=== PATIENT | female | born 1930 | race Caucasian/White ===

== ENCOUNTER 2016-09-17 03:57 | Emergency (ER) | payer MEDICARE, BC ==
[~2016-09-17] VITALS: Ht 165.1 cm; Wt 65.0 kg
[~2016-09-17 03:57] MED LIST: ASPI81 PO; CARV6.25 PO; DIGO.125 PO; ENAL20TA81 PO; LASI20TA PO; LEVO100T4 PO; POTA-267 PO
[2016-09-17 04:01] VITALS: BP 178/74; PULSE 91; RESP 16; TEMP 99.4; O2SAT 98
[2016-09-17] MEDS ORDERED: RESP: ALBUTEROL 2.5 MG/IPRATROPIUM 0.5 MG NEB (SCH) INH ONE (04:15)
[2016-09-17] MEDS ORDERED: SODIUM CHLORIDE 0.9% FLUSH 10 ML FLUSH IVF PRN (04:15)
[2016-09-17] MEDS ORDERED: MECLIZINE HCL 25 MG TAB PO ONE (04:15)
[2016-09-17 04:19] VITALS: PULSE 86; RESP 18; O2SAT 98
[2016-09-17] MEDS ORDERED: CARV6.252 PO (04:28)
[2016-09-17] MEDS ORDERED: FURO1TAB62 PO (04:28)
[2016-09-17] MEDS ORDERED: POTA10CA PO (04:28)
[2016-09-17] MEDS ORDERED: ASPI81TA81 (04:28)
[2016-09-17] MEDS ORDERED: LEVO100T5 PO (04:28)
[2016-09-17] MEDS ORDERED: ENAL20TA PO (04:28)
[2016-09-17 04:44] LABS: AUTOMATED NEUTROPHIL # 10.1 TH/MM3 (1.8-7.7); BASOPHIL % 0.3 % (0.0-2.0); EOSINOPHIL # 0.3 TH/MM3 (0-0.4); EOSINOPHIL % 1.9 % (0.0-4.0); HEMATOCRIT 32.8 % (35.0-46.0); HEMO FLAGS DIFF FINAL; LYMPH % 9.9 % (9.0-44.0); LYMPHOCYTE # 1.3 TH/MM3 (1.0-4.8); MEAN CELL VOLUME 99.4 FL (80.0-100.0); MEAN CORPUSCULAR HEMOGLOBIN 32.1 PG (27.0-34.0); MEAN CORPUSCULAR HGB CONC 32.3 % (32.0-36.0); MONO % 13.9 % (0.0-8.0); PLATELET COUNT 246 TH/MM3 (150-450); RED BLOOD COUNT 3.29 MIL/MM3 (4.00-5.30); RED CELL DISTRIBUTION WIDTH 14.1 % (11.6-17.2); WHITE BLOOD COUNT 13.6 TH/MM3 (4.0-11.0)
[2016-09-17 04:55] LABS: ALT (GPT) 68 U/L (10-53); ANION GAP 9 MEQ/L (5-15); AST (GOT) 43 U/L (15-37); BLOOD UREA NITROGEN 15 MG/DL (7-18); CHLORIDE 107 MEQ/L (98-107); GLOMERULAR FILTRATION RATE 46 ML/MIN (>89); POTASSIUM 3.9 MEQ/L (3.5-5.1); SODIUM (NA) 141 MEQ/L (136-145)
[2016-09-17 04:58] LABS: ALKALINE PHOSPHATASE 75 U/L (45-117); TOTAL BILIRUBIN ADULT 1.5 MG/DL (0.2-1.0)
--- NOTE | 2016-09-17 05:41 | RADRPT ---
EXAM DATE/TIME: 09/17/2016 04:29 [facility] COMPARISON: No previous studies available for comparison. INDICATIONS : Patient has been coughing since Tuesday and has been experiencing vertigo MEDICAL HISTORY : None. SURGICAL HISTORY : Pacemaker. Two pacemaker placements, most recent was 2 years ago. ENCOUNTER: Initial ACUITY: 4 - 6 days PAIN SCORE: 0/10 LOCATION: Bilateral chest FINDINGS: Cardiomegaly. Hyperinflation. Clear lungs. Pacer/ICD device from a left subclavian transvenous arch n oted. Osseous structures are intact. CONCLUSION: No acute disease. Law Collins MD on September 17, 2016 at 5:39 Board Certified Radiologist. This report was verified electronically.
[2016-09-17] MEDS ORDERED: PROM6.256 PO (05:53)
[2016-09-17] MEDS ORDERED: ALBUAER3 INH (05:53)
--- NOTE | 2016-09-17 05:53 | PD ---
HPI Chief Complaint: Chest Pain Time Seen by Provider: 04:08 Travel History International Travel<30 days: No Contact w/Intl Traveler<30days: No Traveled to known affect area: No History of Present Illness HPI This is an 86-year-old female who presents to the emergency department with 1 week of wet cough, constant, moderate severity, worse at nighttime, associated with dizziness. She says she's had vertigo in the past and over the past week or dizziness has gotten worse with her cough. She denies any fevers or chills. She has a history congestive heart failure but hasn't noticed any increased leg swelling. She told her doctor about her symptoms and they prescribed her azithromycin which she's been taking but she doesn't feel any better. PFSH Past Medical History Heart Rhythm Problems: Yes Cardiac Catheterization: Yes (X 35 YEARS AGO) Cardiovascular Problems: Yes (LBB, CHF ) High Cholesterol: No Chest Pain: Yes Congestive Heart Failure: Yes (edUcation given) COPD: Yes Diabetes: No Diminished Hearing: No Genitourinary: No Hypertension: Yes Musculoskeletal: No Neurologic: No Respiratory: No Thyroid Disease: Yes Past Surgical History Abdominal Surgery: Yes (APPENDECTOMY) Appendectomy: Yes Cardiac Surgery: Yes (PACEMAKER INSERTED 02/08/08) Coronary Artery Bypass Graft: No Gynecologic Surgery: Yes (OVARARIAN CYST REMOVED) Pacemaker: Yes Other Surgery: Yes Social History Alcohol Use: No Tobacco Use: No Substance Use: No Allergies-Medications (Allergen,Severity, Reaction): Coded Allergies: Nitroglycerin (Verified Allergy, Severe, 09/17/16) Prednisone (Verified Allergy, Severe, 09/17/16) Reported Meds & Prescriptions Reported Meds & Active Scripts Active Promethazine-Codeine Liq 6.25-10 Mg/5 Ml Syrp 5 Ml PO Q4H PRN Proair Hfa 8.5 GM Inh (Albuterol Sulfate) 90 Mcg/Act Aer 2 Puff INH Q4-6H PRN 108 mcg/actuation Reported Potassium Chloride ER (Potassium Chloride) 10 Meq Cap 10 Meq PO Levothyroxine (Levothyroxine Sodium) 100 Mcg Tab 100 Mcg PO DAILY Lasix (Furosemide) 20 Mg Tab 20 Mg PO Enalapril (Enalapril Maleate) 20 Mg Tab 20 Mg PO DAILY Carvedilol 6.25 Mg Tab 6.25 Mg PO BID Aspir-81 (Aspirin) 81 Mg Tabdr Levothyroxine 100 mcg (Levothyroxine Sodium) 100 Mcg Tab 1 Tab PO DAILY Aspirin 81 Mg Tab 81 Mg PO DAILY Lanoxin (Digoxin) 0.125 Mg Tab 0.5 Tab PO DAILY 1/2 TAB Klor-Con 10 (Potassium Chloride) 10 Meq Tab 20 Meq PO MONWEDFRI 3x WEEK Lasix (Furosemide) 20 Mg Tab 20 Mg PO MONWEDFRI 3x WEEK Vasotec (Enalapril Maleate) 20 Mg Tab 30 Mg PO DAILY Coreg 6.25 mg (Carvedilol) 6.25 Mg Tab 12.5 Mg PO BID Review of Systems Except as stated in HPI: all other systems reviewed are Neg Physical Exam Narrative GENERAL:Well appearing, no acute distress SKIN: Focused skin assessment warm and dry. HEAD: Atraumatic. Normocephalic. EYES: Pupils equal and round. No injection or drainage. ENT: Moist mucous membranes NECK: Trachea midline. CARDIOVASCULAR: Regular rate and rhythm. No murmur appreciated. 1+ bilateral pitting edema. RESPIRATORY: Clear to auscultation. Breath sounds equal bilaterally. GASTROINTESTINAL: Abdomen soft, non-tender, nondistended. MUSCULOSKELETAL: No obvious deformities. NEUROLOGICAL: Awake and alert. No obvious cranial nerve deficits. Moving all extremities. PSYCHIATRIC: Appropriate mood and affect; insight and judgment normal. Data Data Last Documented VS Vital Signs Date Time Temp Pulse Resp B/P Pulse Ox O2 Delivery O2 Flow Rate FiO2 09/17/16 04:19 18 98 09/17/16 04:19 86 09/17/16 04:01 99.4 178/74 Room Air Orders Complete Blood Count With Diff (09/17/16 04:14) Comprehensive Metabolic Panel (09/17/16 04:14) B-Type Natriuretic Peptide (09/17/16 04:14) Iv Access Insert/Monitor (09/17/16 04:14) Ecg Monitoring (09/17/16 04:14) Oximetry (09/17/16 04:14) Oxygen Administration (09/17/16 04:14) Chest, Single Ap (09/17/16 04:14) Sodium Chloride 0.9% Flush (Ns Flush) (09/17/16 04:15) Albuterol-Ipratropium Neb (Duoneb Neb) (09/17/16 04:15) Meclizine (Antivert) (09/17/16 04:15) Labs Laboratory Tests Test 09/17/16 04:25 White Blood Count 13.6 TH/MM3 Red Blood Count 3.29 MIL/MM3 Hemoglobin 10.6 GM/DL Hematocrit 32.8 % Mean Corpuscular Volume 99.4 FL Mean Corpuscular Hemoglobin 32.1 PG Mean Corpuscular Hemoglobin 32.3 % Concent Red Cell Distribution Width 14.1 % Platelet Count 246 TH/MM3 Mean Platelet Volume 8.2 FL Neutrophils (%) (Auto) 74.0 % Lymphocytes (%) (Auto) 9.9 % Monocytes (%) (Auto) 13.9 % Eosinophils (%) (Auto) 1.9 % Basophils (%) (Auto) 0.3 % Neutrophils # (Auto) 10.1 TH/MM3 Lymphocytes # (Auto) 1.3 TH/MM3 Monocytes # (Auto) 1.9 TH/MM3 Eosinophils # (Auto) 0.3 TH/MM3 Basophils # (Auto) 0.0 TH/MM3 CBC Comment DIFF FINAL Differential Comment Sodium Level 141 MEQ/L Potassium Level 3.9 MEQ/L Chloride Level 107 MEQ/L Carbon Dioxide Level 25.0 MEQ/L Anion Gap 9 MEQ/L Blood Urea Nitrogen 15 MG/DL Creatinine 1.13 MG/DL Estimat Glomerular Filtration 46 ML/MIN Rate Random Glucose 107 MG/DL Calcium Level 9.1 MG/DL Total Bilirubin 1.5 MG/DL Aspartate Amino Transf 43 U/L (AST/SGOT) Alanine Aminotransferase 68 U/L (ALT/SGPT) Alkaline Phosphatase 75 U/L B-Type Natriuretic Peptide 343 PG/ML Total Protein 7.0 GM/DL Albumin 3.2 GM/DL [facility] Medical Decision Making Medical Screen Exam Complete: Yes Emergency Medical Condition: Yes Differential Diagnosis Bronchitis, pneumonia, congestive heart failure Narrative Course This is an 86-year-old female who presents to the emergency department with a cough. She has a leukocytosis and a low-grade temperature of 99.4 on arrival. Chest x-rays reassuring and labs are otherwise unremarkable. I suspect the patient has bronchitis. I will augment her antibiotic coverage to Levaquin. She was given a bronchodilator treatment in the emergency department which significantly improved her symptoms. She will also be discharged with cough syrup and meclizine for vertigo. Diagnosis Primary Impression: Bronchitis Patient Instructions: General Instructions Additional Instructions: If you develop severe chest pain, shortness of breath, sweating, lightheadedness , dizziness or difficulty breathing return to the emergency department immediately. Followup with your primary care physician in 2-3 days if your symptoms are not resolved. Stop your azithromycin and take Levaquin. Med/Other Pt SpecificInfo: Prescription(s) given Scripts Meclizine 25 Mg Tab25 Mg PO DIRECTED PRN (VERTIGO) #10 TAB Ref 0 Prov:Gerri Guerrier MD 09/17/16 Levofloxacin (Levaquin)500 Mg Tablet1 Tab PO DAILY 7 Days Prov:Gerri Guerrier MD 09/17/16 Promethazine-Codeine Liq 6.25-10 Mg/5 Ml Syrp5 Ml PO Q4H PRN (COUGH AND/OR COLD SYMPTOMS) #100 ML Prov:Gerri Guerrier MD 09/17/16 Albuterol 8.5 GM Inh (Proair Hfa 8.5 GM Inh)90 Mcg/Act Aer2 Puff INH Q4-6H PRN ( SHORTNESS OF BREATH) #1 INHALER 108 mcg/actuation Prov:Gerri Guerrier MD 09/17/16 Disposition: 01 DISCHARGE HOME Condition: Stable Gerri Guerrier MD Sep 17, 2016 05:53
[2016-09-17] MEDS ORDERED: MECL-62 PO (05:55)
[2016-09-17] MEDS ORDERED: LEVA500T20 PO (05:55)
== END 2016-09-17 06:23 | disposition home or self-care (01) ==
LOC: NEPC 03:57
DX: J40 Bronchitis, not specified as acute or chronic (principal); I50.9 Heart failure, unspecified
CPT/HCPCS: 71010; 80053; 83880; 85025; 94664

== ENCOUNTER 2017-03-18 10:28 | Emergency (ER) | payer MEDICARE, BC ==
[~2017-03-18] VITALS: Ht 162.6 cm; Wt 67.0 kg
[~2017-03-18 10:28] MED LIST changes: +ALBUAER3 INH; +ASPI81TA81; +CARV6.252 PO; +ENAL20TA PO; +FURO1TAB62 PO; +LEVA500T33 PO; +LEVO100T5 PO; +MECL-62 PO; +POTA10CA PO; +PROM6.256 PO
[2017-03-18 10:31] VITALS: BP 164/64; PULSE 71; RESP 16; TEMP 97.7; O2SAT 99
[2017-03-18] MEDS ORDERED: SODIUM CHLOR 0.9% 1000 ML INJ 1,000 ML IV SCH (10:51)
[2017-03-18 10:53] VITALS: PULSE 77; RESP 17; O2SAT 98
[2017-03-18] MEDS ORDERED: PHENAZOPYRIDINE HCL 200 MG TAB PO ONE (11:00)
[2017-03-18] MEDS ORDERED: SODIUM CHLORIDE 0.9% FLUSH 10 ML FLUSH IV FLUSH PRN (11:00)
--- NOTE | 2017-03-18 11:00 | PD ---
HPI Chief Complaint: Complaint Time Seen by Provider: 10:43 Travel History International Travel<30 days: No Contact w/Intl Traveler<30days: No Traveled to known affect area: No History of Present Illness HPI The patient is a 86-year-old female who presents to the emergency department for possible recurrent urinary tract infection. The patient states she has a history of recurrent urinary tract infections, was seen by urology and an outpatient basis and advised to take cranberry pills twice a day. The patient states she was doing well for several months, however, developed UTI symptoms on March 10. The patient states she was seen at [place] urgent [facility] and was diagnosed with UTI. The patient was started on Cipro. She took several days of Cipro, however, continue to have symptoms and contacted her physician, Dr. Gregory Carvalho, who changed antibiotics from Cipro to Bactrim and ordered a urine culture. The patient does not have the results of the urine culture. She continues to have suprapubic pressure, dysuria, frequency, and urgency. Her pain is located over the lower pelvic area. She denies any diarrhea. She denies any known history of diverticulitis or nephrolithiasis. Symptoms are moderate without any alleviating or exacerbating factors. She denies any known history of bladder prolapse. PFSH Past Medical History Heart Rhythm Problems: Yes Cardiac Catheterization: Yes (X 35 YEARS AGO) Cardiovascular Problems: Yes (LBB, CHF ) High Cholesterol: No Chest Pain: Yes Congestive Heart Failure: Yes COPD: Yes Diabetes: No Diminished Hearing: No Genitourinary: No Hypertension: Yes Musculoskeletal: No Neurologic: No Respiratory: No Immunizations Current: Yes Thyroid Disease: Yes Tetanus Vaccination: Unknown ?: Not Past Surgical History Abdominal Surgery: Yes (APPENDECTOMY) Appendectomy: Yes Cardiac Surgery: Yes (PACEMAKER INSERTED 2013 ([employer]) ) Coronary Artery Bypass Graft: No Gynecologic Surgery: Yes (OVARARIAN CYST REMOVED) Pacemaker: Yes Other Surgery: Yes Social History Alcohol Use: No Tobacco Use: No Substance Use: No Allergies-Medications (Allergen,Severity, Reaction): Coded Allergies: nitroglycerin (Unverified Allergy, Severe, 03/18/17) prednisone (Unverified Allergy, Severe, 03/18/17) Reported Meds & Prescriptions Reported Meds & Active Scripts Active Meclizine (Meclizine HCl) 25 Mg Tab 25 Mg PO DIRECTED PRN Levaquin (Levofloxacin) 500 Mg Tablet 1 Tab PO DAILY 7 Days Promethazine-Codeine Liq 6.25-10 Mg/5 Ml Syrp 5 Ml PO Q4H PRN Proair Hfa 8.5 GM Inh (Albuterol Sulfate) 90 Mcg/Act Aer 2 Puff INH Q4-6H PRN 108 mcg/actuation Reported Potassium Chloride ER (Potassium Chloride) 10 Meq Cap 10 Meq PO Levothyroxine (Levothyroxine Sodium) 100 Mcg Tab 100 Mcg PO DAILY Lasix (Furosemide) 20 Mg Tab 20 Mg PO Enalapril (Enalapril Maleate) 20 Mg Tab 20 Mg PO DAILY Carvedilol 6.25 Mg Tab 6.25 Mg PO BID Aspir-81 (Aspirin) 81 Mg Tabdr Levothyroxine 100 mcg (Levothyroxine Sodium) 100 Mcg Tab 1 Tab PO DAILY Aspirin 81 Mg Tab 81 Mg PO DAILY Lanoxin (Digoxin) 0.125 Mg Tab 0.5 Tab PO DAILY 1/2 TAB Klor-Con 10 (Potassium Chloride) 10 Meq Tab 20 Meq PO MONWEDFRI 3x WEEK Lasix (Furosemide) 20 Mg Tab 20 Mg PO MONWEDFRI 3x WEEK Vasotec (Enalapril Maleate) 20 Mg Tab 30 Mg PO DAILY Coreg 6.25 mg (Carvedilol) 6.25 Mg Tab 12.5 Mg PO BID Review of Systems Except as stated in HPI: all other systems reviewed are Neg General / Constitutional: No: Fever Cardiovascular: No: Chest Pain or Discomfort Respiratory: No: Shortness of Breath Gastrointestinal: No: Nausea, Vomiting, Abdominal Pain Genitourinary: Positive: Urgency, Frequency, Dysuria, Pelvic Pain, No: Hematuria Skin: No Rash Physical Exam Narrative GENERAL: Awake, alert, pleasant 86 year-old female who appears her stated age and is in no acute respiratory distress. SKIN: Focused skin assessment warm/dry. HEAD: Atraumatic. Normocephalic. EYES: No injection or drainage. ENT: No nasal bleeding or discharge. Mucous membranes pink and moist. NECK: Trachea midline. No JVD. CARDIOVASCULAR: Regular rate and rhythm. No murmur appreciated. RESPIRATORY: No accessory muscle use. Clear to auscultation. Breath sounds equal bilaterally. GASTROINTESTINAL: Abdomen soft, mild suprapubic tenderness. No guarding or rigidity. Well-healed lower abdominal scar. Back: No CVA tenderness. MUSCULOSKELETAL: No obvious deformities. No clubbing. No cyanosis. No edema. NEUROLOGICAL: Awake and alert. No obvious cranial nerve deficits. Motor grossly within normal limits. Normal speech. PSYCHIATRIC: Appropriate mood and affect; insight and judgment normal. Data Data Last Documented VS Vital Signs Date Time Temp Pulse Resp B/P (MAP) Pulse Ox O2 Delivery O2 Flow Rate FiO2 03/18/17 11:10 73 17 170/74 (106) 96 Room Air 03/18/17 10:31 97.7 Orders Orders Complete Blood Count With Diff (03/18/17 10:51) Comprehensive Metabolic Panel (03/18/17 10:51) Urinalysis - C+S If Indicated (03/18/17 10:51) Ct Abd/Pel W/O Iv Contrast (03/18/17 10:51) Iv Access Insert/Monitor (03/18/17 10:51) Ecg Monitoring (03/18/17 10:51) Oximetry (03/18/17 10:51) Sodium Chlor 0.9% 1000 Ml Inj (Ns 1000 M (03/18/17 10:51) Sodium Chloride 0.9% Flush (Ns Flush) (03/18/17 11:00) Phenazopyridine (Pyridium) (03/18/17 11:00) Labs Laboratory Tests Test 03/18/17 10:50 03/18/17 10:58 Urine Color LIGHT-YELLOW Urine Turbidity CLEAR Urine pH 6.5 Urine Specific [place] 1.005 Urine Protein NEG mg/dL Urine Glucose (UA) NEG mg/dL Urine Ketones NEG mg/dL Urine Occult Blood NEG Urine Nitrite NEG Urine Bilirubin NEG Urine Urobilinogen LESS THAN 2.0 MG/DL Urine Leukocyte Esterase NEG Urine WBC 1 /hpf Urine Squamous Epithelial Cells 1 /hpf Urine Transitional Epithelial Cells <1 /hpf Microscopic Urinalysis Comment CULT NOT INDICATED White Blood Count 9.7 TH/MM3 Red Blood Count 3.83 MIL/MM3 Hemoglobin 13.0 GM/DL Hematocrit 37.9 % Mean Corpuscular Volume 99.0 FL Mean Corpuscular Hemoglobin 34.0 PG Mean Corpuscular Hemoglobin Concent 34.4 % Red Cell Distribution Width 13.9 % Platelet Count 260 TH/MM3 Mean Platelet Volume 8.3 FL Neutrophils (%) (Auto) 71.7 % Lymphocytes (%) (Auto) 16.6 % Monocytes (%) (Auto) 9.1 % Eosinophils (%) (Auto) 1.8 % Basophils (%) (Auto) 0.8 % Neutrophils # (Auto) 6.9 TH/MM3 Lymphocytes # (Auto) 1.6 TH/MM3 Monocytes # (Auto) 0.9 TH/MM3 Eosinophils # (Auto) 0.2 TH/MM3 Basophils # (Auto) 0.1 TH/MM3 CBC Comment DIFF FINAL Differential Comment Blood Urea Nitrogen 15 MG/DL Creatinine 1.37 MG/DL Random Glucose 93 MG/DL Total Protein 7.5 GM/DL Albumin 4.1 GM/DL Calcium Level 9.2 MG/DL Alkaline Phosphatase 72 U/L Aspartate Amino Transf (AST/SGOT) 43 U/L Alanine Aminotransferase (ALT/SGPT) 53 U/L Total Bilirubin 1.3 MG/DL Sodium Level 136 MEQ/L Potassium Level 4.4 MEQ/L Chloride Level 103 MEQ/L Carbon Dioxide Level 25.6 MEQ/L Anion Gap 7 MEQ/L Estimat Glomerular Filtration Rate 36 ML/MIN MDM Medical Decision Making Medical Screen Exam Complete: Yes Emergency Medical Condition: Yes Medical Record Reviewed: Yes Interpretation(s) Last Impressions Abdomen/Pelvis CT 03/18/17 1051 Signed Impressions: Service Date/Time: Saturday, March 18, 2017 11:06 - CONCLUSION: 1. Nonobstructing 3 mm calculus lower pole left kidney. 2. Multiple calcified gallstones without biliary ductal dilatation. 3. Colonic diverticulosis without diverticulitis. Kailash Patel MD Laboratory Tests Test 03/18/17 10:50 03/18/17 10:58 Urine Color LIGHT-YELLOW Urine Turbidity CLEAR Urine pH 6.5 Urine Specific [place] 1.005 Urine Protein NEG mg/dL Urine Glucose (UA) NEG mg/dL Urine Ketones NEG mg/dL Urine Occult Blood NEG Urine Nitrite NEG Urine Bilirubin NEG Urine Urobilinogen LESS THAN 2.0 MG/DL Urine Leukocyte Esterase NEG Urine WBC 1 /hpf Urine Squamous Epithelial Cells 1 /hpf Urine Transitional Epithelial Cells <1 /hpf Microscopic Urinalysis Comment CULT NOT INDICATED White Blood Count 9.7 TH/MM3 Red Blood Count 3.83 MIL/MM3 Hemoglobin 13.0 GM/DL Hematocrit 37.9 % Mean Corpuscular Volume 99.0 FL Mean Corpuscular Hemoglobin 34.0 PG Mean Corpuscular Hemoglobin Concent 34.4 % Red Cell Distribution Width 13.9 % Platelet Count 260 TH/MM3 Mean Platelet Volume 8.3 FL Neutrophils (%) (Auto) 71.7 % Lymphocytes (%) (Auto) 16.6 % Monocytes (%) (Auto) 9.1 % Eosinophils (%) (Auto) 1.8 % Basophils (%) (Auto) 0.8 % Neutrophils # (Auto) 6.9 TH/MM3 Lymphocytes # (Auto) 1.6 TH/MM3 Monocytes # (Auto) 0.9 TH/MM3 Eosinophils # (Auto) 0.2 TH/MM3 Basophils # (Auto) 0.1 TH/MM3 CBC Comment DIFF FINAL Differential Comment Blood Urea Nitrogen 15 MG/DL Creatinine 1.37 MG/DL Random Glucose 93 MG/DL Total Protein 7.5 GM/DL Albumin 4.1 GM/DL Calcium Level 9.2 MG/DL Alkaline Phosphatase 72 U/L Aspartate Amino Transf (AST/SGOT) 43 U/L Alanine Aminotransferase (ALT/SGPT) 53 U/L Total Bilirubin 1.3 MG/DL Sodium Level 136 MEQ/L Potassium Level 4.4 MEQ/L Chloride Level 103 MEQ/L Carbon Dioxide Level 25.6 MEQ/L Anion Gap 7 MEQ/L Estimat Glomerular Filtration Rate 36 ML/MIN Differential Diagnosis Differential diagnosis includes UTI, hemorrhagic cystitis, interstitial cystitis , nephrolithiasis, diverticulitis, bladder prolapse. Narrative Course IV was established, labs are drawn and sent, and the patient was placed on cardiac telemetry monitoring and continuous pulse oximetry monitoring. UA was sent to lab. The patient was a embedded firmware developer Pyridium [address] was ordered to evaluate for possible diverticulitis versus nephrolithiasis with recurrent symptoms and the patient being on 2 antibiotics. UA is negative. I'll surprise in the urine is negative as patient is on her second antibiotic. Creatinine is mildly elevated at 1.37. CT reveals no evidence of diverticulitis or current passage of a kidney stone. The patient may have cystitis, she will need to await culture results from her primary physician. I will place the patient on Pyridium for her symptoms, have advised her to follow- up with her primary physician for culture results and if symptoms persist to follow-up with her urologist. Diagnosis Primary Impression: Cystitis Patient Instructions: General Instructions Additional Instructions: Medication as directed. Please provide the patient a copy of her CT results and lab results at discharge. Follow-up with your primary physician for culture results. If symptoms persist he may need to follow-up with your urologist. Med/Other Pt SpecificInfo: Prescription(s) given Scripts Phenazopyridine HCl (Pyridium) 200 Mg Tablet 200 MG PO Q8HR for 2 Days Prov: Josse Andrews MD 03/18/17 Disposition: 01 DISCHARGE HOME Condition: Stable Josse Andrews MD Mar 18, 2017 11:00
[2017-03-18 11:10] VITALS: BP 170/74; PULSE 73; RESP 17; O2SAT 96
[2017-03-18 11:22] LABS: AUTOMATED NEUTROPHIL # 6.9 TH/MM3 (1.8-7.7); BASOPHIL # 0.1 TH/MM3 (0-0.2); BASOPHIL % 0.8 % (0.0-2.0); EOSINOPHIL # 0.2 TH/MM3 (0-0.4); EOSINOPHIL % 1.8 % (0.0-4.0); HEMATOCRIT 37.9 % (35.0-46.0); LYMPH % 16.6 % (9.0-44.0); LYMPHOCYTE # 1.6 TH/MM3 (1.0-4.8); MEAN CORPUSCULAR HGB CONC 34.4 % (32.0-36.0); MEAN PLATELET VOLUME 8.3 FL (7.0-11.0); MONO % 9.1 % (0.0-8.0); MONOCYTE # 0.9 TH/MM3 (0-0.9); NEUT % 71.7 % (16.0-70.0); PLATELET COUNT 260 TH/MM3 (150-450); RED BLOOD COUNT 3.83 MIL/MM3 (4.00-5.30); RED CELL DISTRIBUTION WIDTH 13.9 % (11.6-17.2); WHITE BLOOD COUNT 9.7 TH/MM3 (4.0-11.0)
[2017-03-18 11:50] LABS: BILIRUBIN, URINE NEG (NEG); BLOOD, URINE NEG (NEG); GLUCOSE,URINE NEG (NEG); KETONE, URINE NEG (NEG); NITRITE,URINE NEG (NEG); PH, URINE 6.5 (5.0-8.5); SQUAMOUS EPITHELIAL CELL URINE 1 /hpf (0-5); TRANSITIONAL EPI CELLS, URINE <1 /hpf; URINE COLOR LIGHT-YELLOW (YELLW/STRAW); URINE LEUKOCYTE ESTERASE NEG (NEG)
[2017-03-18 11:51] LABS: ALBUMIN 4.1 GM/DL (3.4-5.0); AST (GOT) 43 U/L (15-37); BICARBONATE 25.6 MEQ/L (21.0-32.0); CALCIUM 9.2 MG/DL (8.5-10.1); CHLORIDE 103 MEQ/L (98-107); CREATININE 1.37 MG/DL (0.50-1.00); GLOMERULAR FILTRATION RATE 36 ML/MIN (>89); GLUCOSE,RANDOM 93 MG/DL (74-106); SODIUM (NA) 136 MEQ/L (136-145)
[2017-03-18 11:52] LABS: ALKALINE PHOSPHATASE 72 U/L (45-117); ALT (GPT) 53 U/L (10-53); BLOOD UREA NITROGEN 15 MG/DL (7-18); TOTAL BILIRUBIN ADULT 1.3 MG/DL (0.2-1.0); TOTAL PROTEIN 7.5 GM/DL (6.4-8.2)
--- NOTE | 2017-03-18 12:19 | RADRPT ---
EXAM DATE/TIME: 03/18/2017 11:06 [facility] COMPARISON: No previous studies available for comparison. INDICATIONS : Lower abdomen pressure, Evaluate for possible renal stone versus diverticulitis ORAL CONTRAST: No oral contrast ingested. RADIATION DOSE: 9.63 CTDIvol (mGy) MEDICAL HISTORY : Hypertension. Cardiovascular disease Congestive heart failure. SURGICAL HISTORY : Appendectomy. ENCOUNTER: Initial ACUITY: 2 weeks PAIN SCALE: 3/10 LOCATION: Bilateral lower quadrant TECHNIQUE: Volumetric scanning of the abdomen and pelvis was performed. Using automated exposure control and ad justment of the mA and/or kV according to patient size, radiation dose was kept as low as reasonably achievable to obtain optimal diagnostic quality images. DICOM format image data is available electro nically for review and comparison. FINDINGS: No acute findings the visualized liver and spleen. Adrenals and pancreas unremarkable. Multiple calci fied gallstones without biliary ductal dilatation. As a nonobstructing 3 mm calculus lower pole left kidney. No ureteral or bladder calculi. No evidence for obstructive uropathy. Small renal cysts. There is colonic diverticulosis, especially sigmoid without diverticulitis. No acute bony abnormaliti es. CONCLUSION: 1. Nonobstructing 3 mm calculus lower pole left kidney. 2. Multiple calcified gallstones without biliary ductal dilatation. 3. Colonic diverticulosis without diverticulitis. Kailash Patel MD on March 18, 2017 at 12:12 Board Certified Radiologist. This report was verified electronically.
[2017-03-18] MEDS ORDERED: PHEN-510 PO (12:59)
[2017-03-28] MEDS ORDERED: MACR100C2 PO (19:52)
== END 2017-03-18 13:15 | disposition home or self-care (01) ==
LOC: NEPE 10:28
DX: N30.90 Cystitis, unspecified without hematuria (principal); N20.0 Calculus of kidney; I11.0 Hypertensive heart disease with heart failure; I50.9 Heart failure, unspecified; E07.9 Disorder of thyroid, unspecified; K57.30 Diverticulosis of large intestine without perforation or abscess without bleeding
CPT/HCPCS: 74176; 80053; 81001; 85025; 99285; J7030

== ENCOUNTER 2017-03-21 20:37 | Emergency (ER) | payer MEDICARE, BC ==
[~2017-03-21] VITALS: Ht 162.6 cm; Wt 67.3 kg
[~2017-03-21 20:37] MED LIST changes: +PHEN-510 PO
[2017-03-21 20:39] VITALS: BP 144/88; PULSE 70; RESP 16; TEMP 97.8; O2SAT 96
[2017-03-21] MEDS ORDERED: FISHCAP4 PO (20:55)
[2017-03-21] MEDS ORDERED: MULT1TAB46 (20:55)
[2017-03-21] MEDS ORDERED: SODIUM CHLORIDE 0.9% FLUSH 10 ML FLUSH IVF PRN (21:15)
--- NOTE | 2017-03-21 21:55 | PD ---
HPI . complaint Chief Complaint: Complaint Time Seen by Provider: 21:03 Travel History International Travel<30 days: No Contact w/Intl Traveler<30days: No Traveled to known affect area: No History of Present Illness HPI A 6-year-old female chronic history of urinary complaints, urinary retention, recently evaluated for dropped bladder, is scheduled for a pessary placement in 2 days, presents after being treated for urinary tract infection with Cipro, followed by Bactrim, with the addition of Pyridium, notes fullness and discomfort in her suprapubic region, and inability to urinate at this evening. Patient denies fevers chills sweats, shortness of breath, leg swelling or pain, flank pain, or nausea vomiting. Denies any vaginal discharge or bleeding. PFSH Past Medical History Narrative Medical Past medical history reviewed Heart Rhythm Problems: Yes Cardiac Catheterization: Yes (X 35 YEARS AGO) Cardiovascular Problems: Yes (LBB, CHF ) High Cholesterol: No Chest Pain: Yes Congestive Heart Failure: Yes COPD: Yes Diabetes: No Diminished Hearing: No Genitourinary: No Hypertension: Yes Musculoskeletal: No Neurologic: No Respiratory: No Immunizations Current: Yes Thyroid Disease: Yes Past Surgical History Abdominal Surgery: Yes (APPENDECTOMY) Appendectomy: Yes Cardiac Surgery: Yes (PACEMAKER INSERTED 2013 ([facility]) ) Coronary Artery Bypass Graft: No Gynecologic Surgery: Yes (OVARARIAN CYST REMOVED) Pacemaker: Yes Other Surgery: Yes Social History Alcohol Use: No Tobacco Use: No Substance Use: No Allergies-Medications (Allergen,Severity, Reaction): Coded Allergies: nitroglycerin (Unverified Allergy, Severe, 03/18/17) Reported Meds & Prescriptions Reported Meds & Active Scripts Active Pyridium (Phenazopyridine HCl) 200 Mg Tablet 200 Mg PO Q8HR 2 Days Meclizine (Meclizine HCl) 25 Mg Tab 25 Mg PO DIRECTED PRN Levaquin (Levofloxacin) 500 Mg Tablet 1 Tab PO DAILY 7 Days Reported Multi Vitamin Daily (Multiple Vitamin) 1 Tab Tab Fish Oil + D3 (Fish Oil-Cholecalciferol) 1,200-1,000 Mg-Unit Cap 1 Cap PO DAILY Potassium Chloride ER (Potassium Chloride) 10 Meq Cap 10 Meq PO Levothyroxine (Levothyroxine Sodium) 100 Mcg Tab 100 Mcg PO DAILY Lasix (Furosemide) 20 Mg Tab 20 Mg PO Enalapril (Enalapril Maleate) 20 Mg Tab 20 Mg PO DAILY Carvedilol 6.25 Mg Tab 6.25 Mg PO BID Aspir-81 (Aspirin) 81 Mg Tabdr Narrative Medication Allergies and medications reviewed Review of Systems Except as stated in HPI: all other systems reviewed are Neg General / Constitutional: No: Fever Eyes: No: Visual changes HENT: No: Headaches Cardiovascular: No: Chest Pain or Discomfort Respiratory: No: Shortness of Breath Gastrointestinal: No: Abdominal Pain Genitourinary: Positive: Urgency, Hematuria, Decreased Urinary Output, Hesitancy, Pelvic Pain, No: Frequency, Dysuria, Flank Pain, Discharge, Vaginal Bleeding Musculoskeletal: No: Myalgias, Arthralgias, Pain Skin: No Rash Neurologic: No: Weakness Psychiatric: No: Depression Endocrine: No: Polydipsia Hematologic/Lymphatic: No: Easy Bruising Physical Exam Narrative GENERAL: Awake and alert, oriented 3, no acute distress. Vital signs afebrile normal and stable SKIN: Warm and dry. Color is normal no diaphoresis cyanosis or pallor HEAD: Atraumatic. Normocephalic. EYES: Pupils equal and round. No scleral icterus. No injection or drainage. ENT: No nasal bleeding or discharge. Mucous membranes pink and moist. NECK: Trachea midline. No JVD. Supple nontender CARDIOVASCULAR: Regular rate and rhythm. S1 and S2 no murmurs rubs gallops RESPIRATORY: No accessory muscle use. Clear to auscultation. Breath sounds equal bilaterally. GASTROINTESTINAL: Abdomen soft, non-tender, nondistended. Hepatic and splenic margins not palpable. MUSCULOSKELETAL: Extremities without clubbing, cyanosis, or edema. No obvious deformities. No CVA tenderness, mild suprapubic discomfort/tenderness, improved a full catheter NEUROLOGICAL: Awake and alert. No obvious cranial nerve deficits. Motor grossly within normal limits. Five out of 5 muscle strength in the arms and legs. Normal speech. PSYCHIATRIC: Appropriate mood and affect; insight and judgment normal. Data Data Last Documented VS Vital Signs Date Time Temp Pulse Resp B/P (MAP) Pulse Ox O2 Delivery O2 Flow Rate FiO2 03/21/17 20:39 97.8 70 16 144/88 (106) 96 Orders Orders Complete Blood Count With Diff (03/21/17 21:04) Comprehensive Metabolic Panel (03/21/17 21:04) Urinalysis - C+S If Indicated (03/21/17 21:04) Ecg Monitoring (03/21/17 21:04) Iv Access Insert/Monitor (03/21/17 21:04) Sodium Chloride 0.9% Flush (Ns Flush) (03/21/17 21:15) Bladder Scan PRN (03/21/17 21:04) Urinary Catheter Management RYLIE.Q8H (03/21/17 21:18) Urine Culture (03/21/17 21:20) Labs Laboratory Tests Test 03/21/17 21:10 03/21/17 21:20 White Blood Count 8.7 TH/MM3 Red Blood Count 3.44 MIL/MM3 Hemoglobin 11.8 GM/DL Hematocrit 34.1 % Mean Corpuscular Volume 99.1 FL Mean Corpuscular Hemoglobin 34.3 PG Mean Corpuscular Hemoglobin Concent 34.6 % Red Cell Distribution Width 14.6 % Platelet Count 235 TH/MM3 Mean Platelet Volume 8.5 FL Neutrophils (%) (Auto) 65.3 % Lymphocytes (%) (Auto) 19.6 % Monocytes (%) (Auto) 12.1 % Eosinophils (%) (Auto) 2.4 % Basophils (%) (Auto) 0.6 % Neutrophils # (Auto) 5.7 TH/MM3 Lymphocytes # (Auto) 1.7 TH/MM3 Monocytes # (Auto) 1.1 TH/MM3 Eosinophils # (Auto) 0.2 TH/MM3 Basophils # (Auto) 0.1 TH/MM3 CBC Comment DIFF FINAL Differential Comment Blood Urea Nitrogen 17 MG/DL Creatinine 1.43 MG/DL Random Glucose 124 MG/DL Total Protein 6.7 GM/DL Albumin 3.8 GM/DL Calcium Level 9.0 MG/DL Alkaline Phosphatase 66 U/L Aspartate Amino Transf (AST/SGOT) 21 U/L Alanine Aminotransferase (ALT/SGPT) 35 U/L Total Bilirubin 1.1 MG/DL Sodium Level 134 MEQ/L Potassium Level 4.0 MEQ/L Chloride Level 103 MEQ/L Carbon Dioxide Level 24.8 MEQ/L Anion Gap 6 MEQ/L Estimat Glomerular Filtration Rate 35 ML/MIN Urine Color DARK-BROWN Urine Turbidity CLEAR Urine pH 6.0 Urine Specific [place] 1.009 Urine Protein NEG mg/dL Urine Glucose (UA) NEG mg/dL Urine Ketones NEG mg/dL Urine Occult Blood NEG Urine Nitrite POS Urine Bilirubin NEG Urine Urobilinogen 4.0 MG/DL Urine Leukocyte Esterase NEG Urine RBC 1 /hpf Urine WBC LESS THAN 1 /hpf Microscopic Urinalysis Comment CULTURE INDICATED MDM Medical Decision Making Medical Screen Exam Complete: Yes Emergency Medical Condition: Yes Medical Record Reviewed: Yes Differential Diagnosis Urinary retention, urinary tract infection, partial prolapsed bladder Narrative Course Bladder scan showed greater than 500 cc retained. Kerr catheter inserted, 600 cc of red/orange tinged clear urine effluent. Patient notes significant relief. Care plan developed with patient. Patient will home with Kerr catheter in place and leg bag versus Kerr bag. To follow-up with [facility]/urology on Tuesday already scheduled for pessary placement. Remaining reevaluation at that time after pessary placement for retention Diagnosis Primary Impression: Urinary retention Additional Impression: Renal insufficiency Patient Instructions: Acute Kidney Injury (GEN), Acute Urinary Retention in Women (GEN), General Instructions Additional Instructions: Kerr to remain, use leg bag/Kerr catheter bag until your follow-up appointment on Tuesday for your pessary placement. Recommend repeat laboratory examinations to check her kidney function. Return for worsening Disposition: DISCHARGE HOME Condition: Stable Kd Gan MD Mar 21, 2017 21:55
[2017-03-21 22:07] LABS: AUTOMATED NEUTROPHIL # 5.7 TH/MM3 (1.8-7.7); BASOPHIL # 0.1 TH/MM3 (0-0.2); BASOPHIL % 0.6 % (0.0-2.0); EOSINOPHIL # 0.2 TH/MM3 (0-0.4); EOSINOPHIL % 2.4 % (0.0-4.0); HEMATOCRIT 34.1 % (35.0-46.0); HEMOGLOBIN 11.8 GM/DL (11.6-15.3); LYMPH % 19.6 % (9.0-44.0); LYMPHOCYTE # 1.7 TH/MM3 (1.0-4.8); MEAN CELL VOLUME 99.1 FL (80.0-100.0); MEAN CORPUSCULAR HEMOGLOBIN 34.3 PG (27.0-34.0); MEAN CORPUSCULAR HGB CONC 34.6 % (32.0-36.0); MEAN PLATELET VOLUME 8.5 FL (7.0-11.0); MONO % 12.1 % (0.0-8.0); MONOCYTE # 1.1 TH/MM3 (0-0.9); NEUT % 65.3 % (16.0-70.0); PLATELET COUNT 235 TH/MM3 (150-450); RED BLOOD COUNT 3.44 MIL/MM3 (4.00-5.30); RED CELL DISTRIBUTION WIDTH 14.6 % (11.6-17.2); WHITE BLOOD COUNT 8.7 TH/MM3 (4.0-11.0)
[2017-03-21 22:13] LABS: BLOOD, URINE NEG (NEG); GLUCOSE,URINE NEG (NEG); KETONE, URINE NEG (NEG); NITRITE,URINE POS (NEG); URINE LEUKOCYTE ESTERASE NEG (NEG)
[2017-03-21 22:16] LABS: BILIRUBIN, URINE NEG (NEG); URINE COLOR DARK-BROWN (YELLW/STRAW)
[2017-03-21 22:17] LABS: ALBUMIN 3.8 GM/DL (3.4-5.0); AST (GOT) 21 U/L (15-37); BICARBONATE 24.8 MEQ/L (21.0-32.0); BLOOD UREA NITROGEN 17 MG/DL (7-18); CHLORIDE 103 MEQ/L (98-107); CREATININE 1.43 MG/DL (0.50-1.00); GLOMERULAR FILTRATION RATE 35 ML/MIN (>89); GLUCOSE,RANDOM 124 MG/DL (74-106); SODIUM (NA) 134 MEQ/L (136-145)
[2017-03-21 22:18] LABS: ALT (GPT) 35 U/L (10-53)
[2017-03-21 22:20] LABS: ALKALINE PHOSPHATASE 66 U/L (45-117); TOTAL BILIRUBIN ADULT 1.1 MG/DL (0.2-1.0); TOTAL PROTEIN 6.7 GM/DL (6.4-8.2)
[2017-03-28] MEDS ORDERED: MACR100C2 PO (19:52)
== END 2017-03-21 23:15 | disposition home or self-care (01) ==
LOC: NEPE 20:37
DX: R33.9 Retention of urine, unspecified (principal); N28.9 Disorder of kidney and ureter, unspecified; I10 Essential (primary) hypertension; I50.9 Heart failure, unspecified; E07.9 Disorder of thyroid, unspecified; Z87.09 Personal history of other diseases of the respiratory system
CPT/HCPCS: 51702; 80053; 81001; 85025; 87086

== ENCOUNTER 2017-03-28 17:38 | Emergency (ER) | payer MEDICARE, BC ==
[2017-03-28] MEDS: ONDANSETRON HCL 4 MG/2 ML VIAL IVP (19:14)
[2017-03-28 19:43] LABS: AUTOMATED NEUTROPHIL # 6.4 TH/MM3 (1.8-7.7); BASOPHIL # 0.1 TH/MM3 (0-0.2); BASOPHIL % 0.5 % (0.0-2.0); EOSINOPHIL # 0.2 TH/MM3 (0-0.4); EOSINOPHIL % 2.1 % (0.0-4.0); HEMATOCRIT 34.2 % (35.0-46.0); HEMO FLAGS DIFF FINAL; HEMOGLOBIN 11.7 GM/DL (11.6-15.3); LYMPH % 19.2 % (9.0-44.0); LYMPHOCYTE # 1.8 TH/MM3 (1.0-4.8); MEAN CELL VOLUME 98.1 FL (80.0-100.0); MEAN CORPUSCULAR HEMOGLOBIN 33.6 PG (27.0-34.0); MEAN CORPUSCULAR HGB CONC 34.3 % (32.0-36.0); MEAN PLATELET VOLUME 8.1 FL (7.0-11.0); MONO % 10.9 % (0.0-8.0); NEUT % 67.3 % (16.0-70.0); PLATELET COUNT 232 TH/MM3 (150-450); RED BLOOD COUNT 3.48 MIL/MM3 (4.00-5.30); RED CELL DISTRIBUTION WIDTH 13.8 % (11.6-17.2); WHITE BLOOD COUNT 9.5 TH/MM3 (4.0-11.0)
[2017-03-28 19:52] LABS: BACTERIA, URINE OCC /hpf; BILIRUBIN, URINE NEG (NEG); BLOOD, URINE MOD (NEG); COMMENT (UR) CULTURE INDICATED; CULTURE IF INDICATED CULTURE INDICATED; GLUCOSE,URINE NEG (NEG); KETONE, URINE NEG (NEG); MUCUS URINE FEW /lpf (OCC); NITRITE,URINE NEG (NEG); PH, URINE 6.5 (5.0-8.5); SQUAMOUS EPITHELIAL CELL URINE <1 /hpf (0-5); URINE COLOR YELLOW (YELLW/STRAW); URINE LEUKOCYTE ESTERASE LARGE (NEG)
[2017-03-28 20:01] LABS: ALBUMIN 3.5 GM/DL (3.4-5.0); ANION GAP 7 MEQ/L (5-15); AST (GOT) 24 U/L (15-37); BLOOD UREA NITROGEN 16 MG/DL (7-18); CALCIUM 9.3 MG/DL (8.5-10.1); CHLORIDE 97 MEQ/L (98-107); GLOMERULAR FILTRATION RATE 52 ML/MIN (>89); GLUCOSE,RANDOM 104 MG/DL (74-106); POTASSIUM 4.4 MEQ/L (3.5-5.1); SODIUM (NA) 132 MEQ/L (136-145)
[2017-03-28 20:03] LABS: ALKALINE PHOSPHATASE 69 U/L (45-117); ALT (GPT) 26 U/L (10-53); TOTAL BILIRUBIN ADULT 1.2 MG/DL (0.2-1.0); TOTAL PROTEIN 6.6 GM/DL (6.4-8.2)
== END 2017-03-28 21:37 | disposition home or self-care (01) ==
LOC: NEPC 17:38
DX: T83.9XXA Unspecified complication of genitourinary prosthetic device, implant and graft, initial encounter (principal); E07.9 Disorder of thyroid, unspecified; I11.0 Hypertensive heart disease with heart failure; I50.9 Heart failure, unspecified
CPT/HCPCS: 51702; 80053; 81001; 85025; 87086; 96374; 99284-25

== ENCOUNTER 2017-04-01 18:58 | Emergency (ER) | payer MEDICARE, BC ==
[~2017-04-01 18:58] MED LIST changes: -ALBUAER3 INH; -ASPI81 PO; -CARV6.25 PO; -DIGO.125 PO; -ENAL20TA81 PO; +FISHCAP4 PO; -LASI20TA PO; -LEVA500T33 PO; -LEVO100T4 PO; +MACR100C2 PO; +MULT1TAB46; -POTA-267 PO; -PROM6.256 PO
[2017-04-01 18:59] VITALS: BP 150/90; PULSE 75; RESP 16; TEMP 98.1; O2SAT 98
[2017-04-01] MEDS ORDERED: PHENAZOPYRIDINE HCL 100 MG TAB PO ONE (19:30)
[2017-04-01] MEDS ORDERED: SODIUM CHLORIDE 0.9% FLUSH 10 ML FLUSH IV FLUSH PRN (19:30)
--- NOTE | 2017-04-01 19:53 | PD ---
HPI Chief Complaint: Complaint Time Seen by Provider: 19:15 Travel History International Travel<30 days: No Contact w/Intl Traveler<30days: No Traveled to known affect area: No History of Present Illness HPI The patient's 86 years old and complains of discomfort related to a Kerr catheter. Kerr catheter is placed at 11 days prior in association with a diagnosis of cystitis she reports what she believes to be decreased urine output and dark coloration of the urine. She's had no fever nausea or vomiting. Location genitourinary. Timing constant. Severity moderate. PFSH Past Medical History Heart Rhythm Problems: Yes Cardiac Catheterization: Yes (X 35 YEARS AGO) Cardiovascular Problems: Yes (LBB, CHF ) High Cholesterol: No Chest Pain: Yes Congestive Heart Failure: Yes COPD: Yes Diabetes: No Diminished Hearing: No Genitourinary: No Hypertension: Yes Musculoskeletal: No Neurologic: No Respiratory: No Immunizations Current: Yes Thyroid Disease: Yes Past Surgical History Abdominal Surgery: Yes (APPENDECTOMY) Appendectomy: Yes Cardiac Surgery: Yes (PACEMAKER INSERTED 2013 ([facility]) ) Coronary Artery Bypass Graft: No Gynecologic Surgery: Yes (OVARARIAN CYST REMOVED) Pacemaker: Yes Other Surgery: Yes Social History Alcohol Use: No Tobacco Use: No Substance Use: No Allergies-Medications (Allergen,Severity, Reaction): Coded Allergies: nitroglycerin (Unverified Allergy, Severe, 03/18/17) Reported Meds & Prescriptions Reported Meds & Active Scripts Active Pyridium (Phenazopyridine HCl) 100 Mg Tab 100 Mg PO Q8H PRN Pyridium (Phenazopyridine HCl) 200 Mg Tablet 200 Mg PO Q8HR 2 Days Meclizine (Meclizine HCl) 25 Mg Tab 25 Mg PO DIRECTED PRN Reported Macrobid (Nitrofurantoin Monoh/Nitrofur Macro) 100 Mg Cap 100 Mg PO BID Multi Vitamin Daily (Multiple Vitamin) 1 Tab Tab Fish Oil + D3 (Fish Oil-Cholecalciferol) 1,200-1,000 Mg-Unit Cap 1 Cap PO DAILY Potassium Chloride ER (Potassium Chloride) 10 Meq Cap 10 Meq PO Levothyroxine (Levothyroxine Sodium) 100 Mcg Tab 100 Mcg PO DAILY Lasix (Furosemide) 20 Mg Tab 20 Mg PO Enalapril (Enalapril Maleate) 20 Mg Tab 20 Mg PO DAILY Carvedilol 6.25 Mg Tab 6.25 Mg PO BID Aspir-81 (Aspirin) 81 Mg Tabdr Review of Systems Except as stated in HPI: all other systems reviewed are Neg General / Constitutional: No: Fever Physical Exam Narrative GENERAL: 86-year-old female pleasant well-nourished well-developed no acute distress, Kerr catheter bag with clear yellow urine SKIN: Warm and dry. HEAD: Atraumatic. Normocephalic. EYES: Pupils equal and round. No scleral icterus. No injection or drainage. ENT: No nasal bleeding or discharge. Mucous membranes pink and moist. NECK: Trachea midline. No JVD. CARDIOVASCULAR: Regular rate and rhythm. RESPIRATORY: No accessory muscle use. Clear to auscultation. Breath sounds equal bilaterally. GASTROINTESTINAL: Soft. No focus of tenderness. MUSCULOSKELETAL: Extremities without clubbing, cyanosis, or edema. No obvious deformities. NEUROLOGICAL: Awake and alert. No obvious cranial nerve deficits. Motor grossly within normal limits. Five out of 5 muscle strength in the arms and legs. Normal speech. PSYCHIATRIC: Appropriate mood and affect; insight and judgment normal. Data Data Last Documented VS Vital Signs Date Time Temp Pulse Resp B/P (MAP) Pulse Ox O2 Delivery O2 Flow Rate FiO2 04/01/17 18:59 98.1 75 16 150/90 (110) 98 Room Air Vital signs reviewed Orders Orders Basic Metabolic Panel (Bmp) (04/01/17 19:25) Complete Blood Count With Diff (04/01/17 19:25) Urinalysis - C+S If Indicated (04/01/17 19:25) Iv Access Insert/Monitor (04/01/17 19:25) Ecg Monitoring (04/01/17 19:25) Oximetry (04/01/17 19:25) Sodium Chloride 0.9% Flush (Ns Flush) (04/01/17 19:30) Phenazopyridine (Pyridium) (04/01/17 19:30) Urine Culture (04/01/17 19:50) Ed Discharge Order (04/01/17 21:19) Labs Laboratory Tests Test 04/01/17 19:50 White Blood Count 11.4 TH/MM3 Red Blood Count 3.61 MIL/MM3 Hemoglobin 12.1 GM/DL Hematocrit 35.6 % Mean Corpuscular Volume 98.5 FL Mean Corpuscular Hemoglobin 33.6 PG Mean Corpuscular Hemoglobin Concent 34.1 % Red Cell Distribution Width 13.8 % Platelet Count 258 TH/MM3 Mean Platelet Volume 7.9 FL Neutrophils (%) (Auto) 63.8 % Lymphocytes (%) (Auto) 21.0 % Monocytes (%) (Auto) 12.4 % Eosinophils (%) (Auto) 1.9 % Basophils (%) (Auto) 0.9 % Neutrophils # (Auto) 7.2 TH/MM3 Lymphocytes # (Auto) 2.4 TH/MM3 Monocytes # (Auto) 1.4 TH/MM3 Eosinophils # (Auto) 0.2 TH/MM3 Basophils # (Auto) 0.1 TH/MM3 CBC Comment DIFF FINAL Differential Comment Urine Color YELLOW Urine Turbidity CLEAR Urine pH 6.0 Urine Specific [place] 1.017 Urine Protein 30 mg/dL Urine Glucose (UA) NEG mg/dL Urine Ketones NEG mg/dL Urine Occult Blood SMALL Urine Nitrite NEG Urine Bilirubin NEG Urine Urobilinogen LESS THAN 2.0 MG/DL Urine Leukocyte Esterase LARGE Urine RBC 21 /hpf Urine WBC 97 /hpf Urine Squamous Epithelial Cells <1 /hpf Urine Bacteria OCC /hpf Urine Mucus FEW /lpf Microscopic Urinalysis Comment CULTURE INDICATED Blood Urea Nitrogen 18 MG/DL Creatinine 1.11 MG/DL Random Glucose 99 MG/DL Calcium Level 9.3 MG/DL Sodium Level 132 MEQ/L Potassium Level 4.4 MEQ/L Chloride Level 98 MEQ/L Carbon Dioxide Level 28.9 MEQ/L Anion Gap 5 MEQ/L Estimat Glomerular Filtration Rate 46 ML/MIN [facility] Medical Decision Making Medical Screen Exam Complete: Yes Emergency Medical Condition: Yes Medical Record Reviewed: Yes Differential Diagnosis UTI, renal insufficiency, pain from Kerr catheter Narrative Course The patient has an appointment with urology on Tuesday, 3 days from today. With normal blood work it seems the patient is suffering from discomfort related to the presence of the Kerr catheter in the urethra and bladder not uncommon finding. Pyridium has been given here. Prior urine cultures have revealed no isolated and I believe that the urinalysis results are nonspecific and today's evaluation. The patient will have a pessary placed on Tuesday. Bladder scan revealed 20 cc of urine in the bladder. CT of abdomen and pelvis reveals no bladder mass Kerr catheter was flushed multiple times and found to have no obstructive process. Diagnosis Primary Impression: Kerr catheter problem Qualified Codes: T83.9XXD - Unspecified complication of genitourinary prosthetic device, implant and graft, subsequent encounter Med/Other Pt SpecificInfo: Prescription(s) given Scripts Phenazopyridine (Pyridium) 100 Mg Tab 100 MG PO Q8H Y for DYSURIA, #12 TAB 0 Refills Prov: Juan Carlos Allen MD 04/01/17 Disposition: 01 DISCHARGE HOME Condition: Stable Juan Carlos Allen MD Apr 01, 2017 19:53
[2017-04-01] MEDS ORDERED: PHEN0.4T PO (20:01)
[2017-04-01 20:14] LABS: AUTOMATED NEUTROPHIL # 7.2 TH/MM3 (1.8-7.7); BASOPHIL # 0.1 TH/MM3 (0-0.2); BASOPHIL % 0.9 % (0.0-2.0); EOSINOPHIL # 0.2 TH/MM3 (0-0.4); EOSINOPHIL % 1.9 % (0.0-4.0); HEMATOCRIT 35.6 % (35.0-46.0); HEMOGLOBIN 12.1 GM/DL (11.6-15.3); LYMPHOCYTE # 2.4 TH/MM3 (1.0-4.8); MEAN CELL VOLUME 98.5 FL (80.0-100.0); MEAN CORPUSCULAR HEMOGLOBIN 33.6 PG (27.0-34.0); MEAN CORPUSCULAR HGB CONC 34.1 % (32.0-36.0); MEAN PLATELET VOLUME 7.9 FL (7.0-11.0); MONO % 12.4 % (0.0-8.0); MONOCYTE # 1.4 TH/MM3 (0-0.9); NEUT % 63.8 % (16.0-70.0); PLATELET COUNT 258 TH/MM3 (150-450); RED BLOOD COUNT 3.61 MIL/MM3 (4.00-5.30); RED CELL DISTRIBUTION WIDTH 13.8 % (11.6-17.2); WHITE BLOOD COUNT 11.4 TH/MM3 (4.0-11.0)
[2017-04-01 20:25] LABS: BACTERIA, URINE OCC /hpf; BILIRUBIN, URINE NEG (NEG); BLOOD, URINE SMALL (NEG); GLUCOSE,URINE NEG (NEG); KETONE, URINE NEG (NEG); MUCUS URINE FEW /lpf (OCC); NITRITE,URINE NEG (NEG); SQUAMOUS EPITHELIAL CELL URINE <1 /hpf (0-5); URINE COLOR YELLOW (YELLW/STRAW); URINE LEUKOCYTE ESTERASE LARGE (NEG)
[2017-04-01 20:37] LABS: BICARBONATE 28.9 MEQ/L (21.0-32.0); CALCIUM 9.3 MG/DL (8.5-10.1); CREATININE 1.11 MG/DL (0.50-1.00)
== END 2017-04-01 22:11 | disposition home or self-care (01) ==
LOC: NEPC 18:58
DX: T83.9XXD Unspecified complication of genitourinary prosthetic device, implant and graft, subsequent encounter (principal); I11.0 Hypertensive heart disease with heart failure; I50.9 Heart failure, unspecified; E07.9 Disorder of thyroid, unspecified; J44.9 Chronic obstructive pulmonary disease, unspecified; Z79.899 Other long term (current) drug therapy; Z79.82 Long term (current) use of aspirin
CPT/HCPCS: 51798; 80048; 81001; 85025; 87086; 87106

== ENCOUNTER 2017-04-12 13:03 | Emergency (ER) | payer MEDICARE, BC ==
[~2017-04-12] VITALS: Ht 162.6 cm; Wt 65.9 kg
[~2017-04-12 13:03] MED LIST changes: +PHEN0.4T PO
[2017-04-12 13:04] VITALS: BP 124/72; PULSE 75; RESP 16; TEMP 98.9; O2SAT 98
--- NOTE | 2017-04-12 14:10 | PD ---
HPI Chief Complaint: Complaint Time Seen by Provider: 13:55 Travel History International Travel<30 days: No Contact w/Intl Traveler<30days: No Traveled to known affect area: No History of Present Illness HPI patient c/o suprapubic discomfort, pressure like, relieved by urination, but over the last 4hrs has not been able to void, states that she has had urinary retention before and tried to contact her new urologist who stated that he could not do anything to her until he saw her in office. so patient came to er to seek help, requesting a thornton be placed. patient denies any assoc factor of fever/cp/kraft/back pain/n/v/d/ at this time. pcp sharita yuan urologist: new, first appt tomorrow, can't recall name pmhx:chf, mi, hypothyroid, pacemaker PFSH Past Medical History Heart Rhythm Problems: Yes Cardiac Catheterization: Yes (X 35 YEARS AGO) Cardiovascular Problems: Yes High Cholesterol: No Chest Pain: Yes Congestive Heart Failure: Yes COPD: Yes Diabetes: No Diminished Hearing: No Genitourinary: No Heparin Induced Thrombocytopen: No Hypertension: Yes Musculoskeletal: No Neurologic: No Respiratory: No Immunizations Current: Yes Thyroid Disease: Yes Tetanus Vaccination: < 5 Years Past Surgical History Abdominal Surgery: Yes (APPENDECTOMY) Appendectomy: Yes Cardiac Surgery: Yes (PACEMAKER INSERTED 2013 ([facility]) ) Coronary Artery Bypass Graft: No Gynecologic Surgery: Yes (OVARARIAN CYST REMOVED) Pacemaker: Yes Other Surgery: Yes Social History Alcohol Use: No Tobacco Use: No Substance Use: No Allergies-Medications (Allergen,Severity, Reaction): Coded Allergies: nitroglycerin (Unverified Allergy, Severe, 04/12/17) Reported Meds & Prescriptions Reported Meds & Active Scripts Active Pyridium (Phenazopyridine HCl) 200 Mg Tablet 200 Mg PO Q8HR 2 Days Meclizine (Meclizine HCl) 25 Mg Tab 25 Mg PO DIRECTED PRN Reported Macrobid (Nitrofurantoin Monoh/Nitrofur Macro) 100 Mg Cap 100 Mg PO BID Multi Vitamin Daily (Multiple Vitamin) 1 Tab Tab Fish Oil + D3 (Fish Oil-Cholecalciferol) 1,200-1,000 Mg-Unit Cap 1 Cap PO DAILY Potassium Chloride ER (Potassium Chloride) 10 Meq Cap 10 Meq PO Levothyroxine (Levothyroxine Sodium) 100 Mcg Tab 100 Mcg PO DAILY Lasix (Furosemide) 20 Mg Tab 20 Mg PO Enalapril (Enalapril Maleate) 20 Mg Tab 20 Mg PO DAILY Carvedilol 6.25 Mg Tab 6.25 Mg PO BID Aspir-81 (Aspirin) 81 Mg Tabdr Review of Systems Except as stated in HPI: all other systems reviewed are Neg General / Constitutional: No: Fever Eyes: No: Visual changes HENT: No: Headaches Cardiovascular: No: Chest Pain or Discomfort Respiratory: No: Shortness of Breath Gastrointestinal: No: Abdominal Pain Genitourinary: Positive: Decreased Urinary Output Musculoskeletal: No: Pain Skin: No Rash Neurologic: No: Weakness Psychiatric: No: Depression Endocrine: No: Polydipsia Hematologic/Lymphatic: No: Easy Bruising Physical Exam Narrative GENERAL: SKIN: Warm and dry. HEAD: Atraumatic. Normocephalic. EYES: Pupils equal and round. No scleral icterus. No injection or drainage. ENT: No nasal bleeding or discharge. Mucous membranes pink and moist. NECK: Trachea midline. No JVD. CARDIOVASCULAR: Regular rate and rhythm. RESPIRATORY: No accessory muscle use. Clear to auscultation. Breath sounds equal bilaterally. GASTROINTESTINAL: Abdomen soft, non-tender, mild suprapubic distention almost to umbilicus, bladder fullness noted MUSCULOSKELETAL: Extremities without clubbing, cyanosis, or edema. No obvious deformities. NEUROLOGICAL: Awake and alert. No obvious cranial nerve deficits. Motor grossly within normal limits. Five out of 5 muscle strength in the arms and legs. Normal speech. PSYCHIATRIC: Appropriate mood and affect; insight and judgment normal. Data Data Last Documented VS Vital Signs Date Time Temp Pulse Resp B/P (MAP) Pulse Ox O2 Delivery O2 Flow Rate FiO2 04/12/17 13:04 98.9 75 16 124/72 (89) 98 Room Air Orders Orders Urinalysis - C+S If Indicated (04/12/17 13:58) Urinary Catheter Insert/Apply (04/12/17 13:58) Urine Culture (04/12/17 14:00) Labs Laboratory Tests Test 04/12/17 14:00 Urine Color DARK-YELLOW Urine Turbidity HAZY Urine pH 6.5 Urine Specific [place] 1.013 Urine Protein NEG mg/dL Urine Glucose (UA) NEG mg/dL Urine Ketones NEG mg/dL Urine Occult Blood NEG Urine Nitrite POS Urine Bilirubin NEG Urine Urobilinogen LESS THAN 2.0 MG/DL Urine Leukocyte Esterase LARGE Urine RBC 1 /hpf Urine WBC /hpf Urine WBC Clumps OCC Urine Squamous Epithelial Cells <1 /hpf Urine Bacteria OCC /hpf Microscopic Urinalysis Comment CULTURE INDICATED MDM Medical Decision Making Medical Screen Exam Complete: Yes Emergency Medical Condition: Yes Medical Record Reviewed: Yes Differential Diagnosis urinary retention v uti Narrative Course THORNTON RELIEVED ALL SYMPTOMS FROM PATIENT , NEARLY 600 INITIAL OUTPUT, WILL D/C ON LEG BAG AND WILL TREAT PATIENT WITH ONE TIME ROCEPHIN IV AND FOLLOW CULTURE FOR FURTHER TREATMENT BASED ON CULTURE Diagnosis Primary Impression: URINARY RETENTION S/P THORNTON PLACEMENT Additional Impression: UTI Disposition: 01 DISCHARGE HOME Condition: Stable Wally Gutiérrez MD Apr 12, 2017 14:10
[2017-04-12 14:29] LABS: BACTERIA, URINE OCC /hpf; BILIRUBIN, URINE NEG (NEG); BLOOD, URINE NEG (NEG); GLUCOSE,URINE NEG (NEG); KETONE, URINE NEG (NEG); NITRITE,URINE POS (NEG); PH, URINE 6.5 (5.0-8.5); SQUAMOUS EPITHELIAL CELL URINE <1 /hpf (0-5); URINE COLOR DARK-YELLOW (YELLW/STRAW); URINE LEUKOCYTE ESTERASE LARGE (NEG); WHITE BLOOD CELL CLUMPS OCC
[2017-04-12] MEDS ORDERED: FLUCONAZOLE 100 MG TAB PO ONE (15:30)
[2017-04-12] MEDS ORDERED: cefTRIAXone INJ 1,000 MG in SODIUM CHLORIDE 0.9% INJ 100 ML IV ONE (15:30)
== END 2017-04-12 17:07 | disposition home or self-care (01) ==
LOC: NEPD 13:03
DX: N39.0 Urinary tract infection, site not specified (principal); I11.0 Hypertensive heart disease with heart failure; I50.9 Heart failure, unspecified; E07.9 Disorder of thyroid, unspecified
CPT/HCPCS: 51702; 81001; 87077; 87086; 87186; 96374; 99283; J0696

== ENCOUNTER 2017-05-02 17:35 | Emergency (ER) | payer MEDICARE, BC ==
[~2017-05-02 17:35] MED LIST changes: -PHEN0.4T PO
[2017-05-02 17:42] VITALS: BP 154/84; PULSE 80; RESP 15; TEMP 98.4; O2SAT 97
[2017-05-02 18:51] LABS: AUTOMATED NEUTROPHIL # 6.8 TH/MM3 (1.8-7.7); BASOPHIL # 0.1 TH/MM3 (0-0.2); BASOPHIL % 0.5 % (0.0-2.0); EOSINOPHIL # 0.2 TH/MM3 (0-0.4); EOSINOPHIL % 2.2 % (0.0-4.0); HEMATOCRIT 34.7 % (35.0-46.0); HEMOGLOBIN 12.3 GM/DL (11.6-15.3); LYMPH % 18.2 % (9.0-44.0); LYMPHOCYTE # 1.8 TH/MM3 (1.0-4.8); MEAN CELL VOLUME 99.3 FL (80.0-100.0); MEAN CORPUSCULAR HEMOGLOBIN 35.3 PG (27.0-34.0); MEAN CORPUSCULAR HGB CONC 35.5 % (32.0-36.0); MEAN PLATELET VOLUME 7.5 FL (7.0-11.0); MONO % 11.3 % (0.0-8.0); MONOCYTE # 1.1 TH/MM3 (0-0.9); NEUT % 67.8 % (16.0-70.0); PLATELET COUNT 241 TH/MM3 (150-450); RED CELL DISTRIBUTION WIDTH 14.8 % (11.6-17.2)
[2017-05-02 19:03] LABS: BICARBONATE 29.2 MEQ/L (21.0-32.0); CALCIUM 9.3 MG/DL (8.5-10.1); CREATININE 1.01 MG/DL (0.50-1.00)
--- NOTE | 2017-05-02 20:09 | PD ---
HPI Chief Complaint: Complaint Time Seen by Provider: 19:59 Travel History International Travel<30 days: No Contact w/Intl Traveler<30days: No Traveled to known affect area: No History of Present Illness HPI The patient is an 86 year old female who presents to the [facility] emergency department with a history of hematuria that she first noticed when she self cath at 3 PM. She reports that she has been self cathing for the last 2 weeks every 4 hours. She reports that she has a history of urinary retention and had had Kerr catheters in the past. She is currently followed by Dr. Gomes for her urologic care. She reports that since March 09 she has had intermittent problems with a strong odor to her urine when she was originally diagnosed with a urinary tract infection at that time. She completed a course of Macrobid 1 week ago. She denies having any dysuria. She denies having any trauma with the catheter placement at 3 PM. She reports that she is on low- dose aspirin daily. She denies taking any other blood thinners. She reports that she last saw Dr. Gomes on Tuesday. She last had a cystoscopy approximately 2 months ago. She denies any bladder stones or bladder lesions. She reports that she does have a kidney stone that was diagnosed recently up in the kidney, not currently in the ureter. She denies having any abdominal pain or flank pain. She denies having any recent fevers or chills. Otherwise on review of systems, she denies having any cough, congestion, neck pain, chest pain, shortness of breath, vomiting, diarrhea, or neurologic symptoms. [facility] Past Medical History Narrative Medical The patient's past medical history is significant for congestive heart failure, left bundle branch block status post pacemaker placement, history of fatty liver , hyperlipidemia, hypertension, hypothyroid disorder, nonischemic cardiomyopathy , ventricular tachycardia, and urinary retention. Heart Rhythm Problems: Yes Cardiac Catheterization: Yes (X 35 YEARS AGO) Cardiovascular Problems: Yes High Cholesterol: No Chest Pain: Yes Congestive Heart Failure: Yes COPD: Yes Diabetes: No Diminished Hearing: No Genitourinary: No Heparin Induced Thrombocytopen: No Hypertension: Yes Musculoskeletal: No Neurologic: No Respiratory: No Immunizations Current: Yes Thyroid Disease: Yes Past Surgical History Narrative Surgical The patient's past surgical history is significant for appendectomy, cataract surgery, ovarian cystectomy Abdominal Surgery: Yes (APPENDECTOMY) Appendectomy: Yes Cardiac Surgery: Yes (PACEMAKER INSERTED 2013 ([facility]) ) Coronary Artery Bypass Graft: No Gynecologic Surgery: Yes (OVARARIAN CYST REMOVED) Pacemaker: Yes Other Surgery: Yes Social History Alcohol Use: No Tobacco Use: No Substance Use: No Allergies-Medications (Allergen,Severity, Reaction): Coded Allergies: nitroglycerin (Unverified Allergy, Severe, 04/12/17) Reported Meds & Prescriptions Reported Meds & Active Scripts Active Keflex (Cephalexin) 500 Mg Capsule 500 Mg PO Q8H 7 Days Reported Fish Oil + D3 (Fish Oil-Cholecalciferol) 1,200-1,000 Mg-Unit Cap 1 Cap PO DAILY Potassium Chloride ER (Potassium Chloride) 10 Meq Cap 10 Meq PO Levothyroxine (Levothyroxine Sodium) 100 Mcg Tab 100 Mcg PO DAILY Lasix (Furosemide) 20 Mg Tab 20 Mg PO Enalapril (Enalapril Maleate) 20 Mg Tab 20 Mg PO DAILY Carvedilol 6.25 Mg Tab 6.25 Mg PO BID Aspir-81 (Aspirin) 81 Mg Tabdr Review of Systems Except as stated in HPI: all other systems reviewed are Neg General / Constitutional: No: Fever Eyes: No: Visual changes HENT: No: Headaches Cardiovascular: No: Chest Pain or Discomfort Respiratory: No: Shortness of Breath Gastrointestinal: No: Nausea, Vomiting, Diarrhea, Abdominal Pain Genitourinary: Positive: Hematuria, No: Urgency, Frequency, Dysuria Musculoskeletal: No: Pain Skin: No Rash Neurologic: No: Weakness, Focal Abnormalities, Change in Mentation, Slurred Speech, Sensory Disturbance Psychiatric: No: Depression Endocrine: No: Polydipsia Hematologic/Lymphatic: No: Easy Bruising Physical Exam Narrative General: The patient is a well-developed well-nourished female in no acute distress. Head and Neck exam: Head is normocephalic atraumatic. Eyes: EOMI, pupils are equal round and reactive to light. Nose: Midline septum with pink mucous membranes Mouth: Dentition unremarkable. Moist mucus membranes. Posterior oropharynx is not erythematous. No tonsillar hypertrophy. Uvula midline. Airway patent. Neck: No palpable lymphadenopathy. No nuchal rigidity. No thyromegaly. Cardiovascular: Regular rate and rhythm without murmurs, gallops, or rubs. Lungs: Clear to auscultation bilaterally. No wheezes, rhonchi, or rales. Abdomen: Soft, without tenderness to palpation in all 4 quadrants of the abdomen. No guarding, rebound, or rigidity. Normal bowel sounds are audible. No tenderness on palpation of McBurney's point. Negative Narayan sign Extremities: No clubbing, cyanosis, or edema. 2+ pulses in all 4 extremities. No calf tenderness on palpation Back: No spinous process tenderness to palpation. No costovertebral angle tenderness to palpation. Neurologic Exam: Grossly nonfocal. Skin Exam: No rash noted. Intact skin that is warm and dry. Data Data Last Documented VS Vital Signs Date Time Temp Pulse Resp B/P (MAP) Pulse Ox O2 Delivery O2 Flow Rate FiO2 05/02/17 17:42 98.4 80 15 154/84 (107) 97 Orders Orders Complete Blood Count With Diff (05/02/17 17:44) Basic Metabolic Panel (Bmp) (05/02/17 17:44) Urinalysis - C+S If Indicated (05/02/17 17:44) Ct Abd/Pel W/O Iv Contrast (05/02/17 20:01) Prothrombin Time / Inr (Pt) (05/02/17 20:24) Act Partial Throm Time (Ptt) (05/02/17 20:24) Urinary Catheter Insert/Apply (05/02/17 21:26) Sodium Chlor 0.9% 250 Ml Inj (Ns 250 Ml (05/02/17 21:30) Urine Culture (05/02/17 20:28) Ceftriaxone Inj (Rocephin Inj) (05/02/17 22:15) Ed Discharge Order (05/02/17 23:15) Labs Laboratory Tests Test 05/02/17 18:27 05/02/17 20:28 05/02/17 21:50 White Blood Count 10.0 TH/MM3 Red Blood Count 3.50 MIL/MM3 Hemoglobin 12.3 GM/DL Hematocrit 34.7 % Mean Corpuscular Volume 99.3 FL Mean Corpuscular Hemoglobin 35.3 PG Mean Corpuscular Hemoglobin Concent 35.5 % Red Cell Distribution Width 14.8 % Platelet Count 241 TH/MM3 Mean Platelet Volume 7.5 FL Neutrophils (%) (Auto) 67.8 % Lymphocytes (%) (Auto) 18.2 % Monocytes (%) (Auto) 11.3 % Eosinophils (%) (Auto) 2.2 % Basophils (%) (Auto) 0.5 % Neutrophils # (Auto) 6.8 TH/MM3 Lymphocytes # (Auto) 1.8 TH/MM3 Monocytes # (Auto) 1.1 TH/MM3 Eosinophils # (Auto) 0.2 TH/MM3 Basophils # (Auto) 0.1 TH/MM3 CBC Comment DIFF FINAL Differential Comment Blood Urea Nitrogen 15 MG/DL Creatinine 1.01 MG/DL Random Glucose 115 MG/DL Calcium Level 9.3 MG/DL Sodium Level 134 MEQ/L Potassium Level 3.8 MEQ/L Chloride Level 100 MEQ/L Carbon Dioxide Level 29.2 MEQ/L Anion Gap 5 MEQ/L Estimat Glomerular Filtration Rate 52 ML/MIN Urine Color YELLOW Urine Turbidity CLEAR Urine pH 6.5 Urine Specific [place] 1.018 Urine Protein TRACE mg/dL Urine Glucose (UA) NEG mg/dL Urine Ketones NEG mg/dL Urine Occult Blood LARGE Urine Nitrite NEG Urine Bilirubin NEG Urine Urobilinogen LESS THAN 2.0 MG/DL Urine Leukocyte Esterase TRACE Urine RBC /hpf Urine WBC 32 /hpf Urine Squamous Epithelial Cells 1 /hpf Microscopic Urinalysis Comment CULTURE INDICATED Prothrombin Time 10.6 SEC Prothromb Time International Ratio 1.0 RATIO Activated Partial Thromboplast Time 23.6 SEC MDM Medical Decision Making Medical Screen Exam Complete: Yes Emergency Medical Condition: Yes Medical Record Reviewed: Yes Interpretation(s) Last Impressions Abdomen/Pelvis CT 05/02/172000 Signed Impressions: Service Date/Time: Tuesday, May 02, 2017 21:17 - CONCLUSION: 1. Minimal basilar lung scarring. Multiple gallstones. Mildly atrophic right kidney. Stable hepatic cyst. 2. Stable nonobstructing 3 mm calculus lower pole left kidney. 3. Colonic diverticulosis without diverticulitis. Kailash Patel MD Differential Diagnosis Urethral injury with hematuria, versus hemorrhagic cystitis, versus kidney stone. Narrative Course During the course of the patient's emergency department visit, the patient's history, examination, and differential diagnosis were reviewed with the patient. The patient was placed on a education paraprofessional with oximetry and frequent blood pressure monitoring. The patient had IV access obtained and blood work sent for analysis. The patient was initially provided normal saline at 250 mL bolus 1. The patient's laboratory studies were reviewed and remarkable for a white count of 10, hemoglobin 12.3, platelets 241 with 11.3 monocytes, basic metabolic profile is remarkable for sodium of 134, creatinine 1.01, GFR 52, glucose 118, PT 10.6, PTT 23.6, urinalysis shows large occult blood trace leukocyte esterase innumerable RBCs 32 WBCs, culture indicated. The patient was given a dose of Rocephin 1 g IV. Radiology studies were reviewed and remarkable for a CT scan of the abdomen and pelvis that shows minimal basilar lung scarring, multiple gallstones, mildly atrophic right kidney, stable hepatic cyst, stable nonobstructing 3 mm calculus lower pole left kidney, colonic diverticulosis without diverticulitis. The patient had a Kerr catheter placed. Kerr catheter was placed to a leg bag. The patient is resting comfortably and feels better, is alert and in no distress. The patient's results and examination findings were discussed with the patient. The repeat examination is unremarkable and benign. The history, exam, diagnostic testing, and current condition do not suggest any significant pathology to warrant further testing, continued ED treatment, admission, or surgical evaluation at this point. The vital signs have been stable. The patient does not have uncontrollable pain, intractable vomiting, or other significant symptoms. The patient's condition is stable and appropriate for discharge. The patient will pursue further outpatient evaluation with a primary care physician or other designated or consulting physician as indicated in the discharge instructions. The patient expressed understanding and was agreeable with this plan. Diagnosis Primary Impression: Hematuria Qualified Codes: R31.9 - Hematuria, unspecified Additional Impression: Urinary retention Referrals: Sal Gomes MD call for appointment Med/Other Pt SpecificInfo: Prescription(s) given Scripts Cephalexin (Keflex) 500 Mg Capsule 500 MG PO Q8H for Infection for 7 Days, #21 CAP 0 Refills Prov: Twila Lee MD 05/02/17 Disposition: 01 DISCHARGE HOME Condition: Stable Twila Lee MD May 02, 2017 20:09
[2017-05-02] MEDS ORDERED: SODIUM CHLOR 0.9% 250 ML INJ 250 ML IV ONE (21:30)
[2017-05-02 21:35] LABS: BILIRUBIN, URINE NEG (NEG); BLOOD, URINE LARGE (NEG); GLUCOSE,URINE NEG (NEG); KETONE, URINE NEG (NEG); NITRITE,URINE NEG (NEG); PH, URINE 6.5 (5.0-8.5); SQUAMOUS EPITHELIAL CELL URINE 1 /hpf (0-5); URINE COLOR YELLOW (YELLW/STRAW); URINE LEUKOCYTE ESTERASE TRACE (NEG)
--- NOTE | 2017-05-02 21:37 | RADRPT ---
EXAM DATE/TIME: 05/02/2017 21:17 [facility] COMPARISON: CT ABDOMEN & PELVIS W/O CONTRAST, March 18, 2017, 11:06. INDICATIONS : Hematuria. ORAL CONTRAST: No oral contrast ingested. RADIATION DOSE: 6.37 CTDIvol (mGy) MEDICAL HISTORY : Congestive heart failure. Cardiovascular disease Hypertension. SURGICAL HISTORY : Pacemaker. Appendectomy. ENCOUNTER: Initial ACUITY: 1 day PAIN SCALE: 5/10 LOCATION: Bilateral abdomen TECHNIQUE: Volumetric scanning of the abdomen and pelvis was performed. Using automated exposure control and ad justment of the mA and/or kV according to patient size, radiation dose was kept as low as reasonably achievable to obtain optimal diagnostic quality images. DICOM format image data is available electro nically for review and comparison. FINDINGS: Lung bases are clear except for minimal scarring. No pleural or pericardial effusion. Pacer lead in r ight ventricle. No acute findings in the spleen, adrenals or pancreas. Numerous calcified gallstones. No hydronephros is. Nonobstructing 3 mm calculus lower pole left kidney. Atrophic right kidney. There is mild constipation. Colonic diverticulosis without diverticulitis. Kerr catheter in decompre ssed bladder. CONCLUSION: 1. Minimal basilar lung scarring. Multiple gallstones. Mildly atrophic right kidney. Stable hepatic c yst. 2. Stable nonobstructing 3 mm calculus lower pole left kidney. 3. Colonic diverticulosis without diverticulitis. Kailash Patel MD on May 02, 2017 at 21:31 Board Certified Radiologist. This report was verified electronically.
[2017-05-02] MEDS ORDERED: cefTRIAXone INJ 1,000 MG in SODIUM CHLORIDE 0.9% INJ 100 ML IV ONE (22:15)
[2017-05-02] MEDS ORDERED: CEPH-460 PO (22:16)
[2017-05-02 22:32] LABS: PROTHROMBIN TIME - PATIENT 10.6 SEC (9.8-11.6)
== END 2017-05-03 | disposition home or self-care (01) ==
LOC: NEPE 17:35
DX: R31.9 Hematuria, unspecified (principal); R33.9 Retention of urine, unspecified; K80.20 Calculus of gallbladder without cholecystitis without obstruction; K57.30 Diverticulosis of large intestine without perforation or abscess without bleeding; N20.0 Calculus of kidney; I11.0 Hypertensive heart disease with heart failure; I50.9 Heart failure, unspecified
CPT/HCPCS: 51702; 74176; 80048; 81001; 85025; 85610; 85730; 87086; 96374; 99284; J0696; J7050

== ENCOUNTER 2017-06-16 15:51 | Emergency (ER) | payer MEDICARE, BC ==
[~2017-06-16] VITALS: Ht 162.6 cm; Wt 65.0 kg
[~2017-06-16 15:51] MED LIST changes: +CEPH-460 PO; -MACR100C2 PO; -MECL-62 PO; -MULT1TAB46; -PHEN-510 PO
[2017-06-16 15:59] VITALS: BP 161/68; PULSE 75; RESP 16; TEMP 98.3; O2SAT 98
--- NOTE | 2017-06-16 16:31 | RADRPT ---
EXAM DATE/TIME: 06/16/2017 16:13 [facility] COMPARISON: CHEST SINGLE AP, September 17, 2016, 4:29. INDICATIONS : Cough MEDICAL HISTORY : Congestive heart failure. Cardiovascular disease Hypertension SURGICAL HISTORY : Pacemaker. Appendectomy ENCOUNTER: Initial ACUITY: 2 weeks PAIN SCORE: 0/10 LOCATION: chest FINDINGS: Frontal and lateral views of the chest demonstrate a normal-sized cardiac silhouette. Left chest wall cardiac pacing device/AICD is present with biventricular leads. There is no effusion, consolidation, or pneumothorax visualized. The bones and soft tissues demonstrate no acute finding. There are degen erative changes of the thoracic spine. CONCLUSION: No acute cardiopulmonary abnormality is identified. Bernard Hussein MD on June 16, 2017 at 16:27 Board Certified Radiologist. This report was verified electronically.
[2017-06-16] MEDS ORDERED: HUMIBIDDM PO (21:25)
[2017-06-16] MEDS ORDERED: GUAI237L (21:25)
[2017-06-16 21:29] VITALS: BP 194/80; PULSE 85; RESP 16; O2SAT 97
[2017-06-16] MEDS: RESP: ALBUTEROL 2.5 MG/IPRATROPIUM 0.5 MG NEB (SCH) INH ×2 (21:56→21:57)
[2017-06-16] MEDS ORDERED: DEXAMETHASONE SOD PHOS 4 MG/ML VIAL IM ONE (22:00)
[2017-06-16] MEDS ORDERED: BENZONATATE 100 MG CAP PO ONE (22:00)
--- NOTE | 2017-06-16 22:38 | PD ---
HPI Chief Complaint: Cold / Flu Symptoms Time Seen by Provider: 21:29 Travel History International Travel<30 days: No Contact w/Intl Traveler<30days: No Traveled to known affect area: No History of Present Illness HPI 87-year-old female complains of cough for approximately 2 weeks. She reports taking azithromycin and is now on day for 5. She reports no improvement from it. Associated symptoms include wheezing. She denies fever. She also describes some nausea and believes that perhaps she could be suffering with UTI. She took a flu shot this year. She reports a history of COPD is listed on her medical record however she denies any diagnosis over that she is aware. She does not use inhalers or steroids. Her was a smoker however she is not. No rhinorrhea. No GERD symptoms. PFSH Past Medical History Hx Anticoagulant Therapy: Yes (81MG ASA) Heart Rhythm Problems: Yes Cardiac Catheterization: Yes (X 35 YEARS AGO) Cardiovascular Problems: Yes High Cholesterol: No Chest Pain: Yes Congestive Heart Failure: Yes COPD: Yes Diabetes: No Diminished Hearing: No Genitourinary: No Heparin Induced Thrombocytopen: No Hypertension: Yes Musculoskeletal: No Neurologic: No Respiratory: No Immunizations Current: Yes Thyroid Disease: Yes Past Surgical History Abdominal Surgery: Yes (APPENDECTOMY) Appendectomy: Yes Cardiac Surgery: Yes (PACEMAKER INSERTED 2013 ([facility]) ) Coronary Artery Bypass Graft: No Gynecologic Surgery: Yes (OVARARIAN CYST REMOVED) Pacemaker: Yes Other Surgery: Yes Social History Alcohol Use: No Tobacco Use: No Substance Use: No Allergies-Medications (Allergen,Severity, Reaction): Coded Allergies: Sulfa (Sulfonamide Antibiotics) (Verified Allergy, Unknown, Rash, 06/16/17) Reported Meds & Prescriptions Reported Meds & Active Scripts Active Keflex (Cephalexin) 500 Mg Capsule 500 Mg PO Q8H 7 Days Proventil Hfa 6.7 GM Inh (Albuterol Sulfate) 90 Mcg/Act Aer 2 Puff INH Q6H PRN Tessalon Perles (Benzonatate) 100 Mg Cap 200 Mg PO TID PRN Guaifenesin-Codeine Liq 100-10 Mg/5 Ml Soln 10 Ml PO Q6H PRN 7 Days Reported Mucinex DM (Dextromethorphan-Guaifenesin) 30-600 Mg Tab 1 Tab PO BID PRN Robitussin Cough-Chest Dm Liq (Guaifenesin/Dextromethorphan) 100 Mg-5 Mg/5 Ml Liquid Fish Oil + D3 (Fish Oil-Cholecalciferol) 1,200-1,000 Mg-Unit Cap 1 Cap PO DAILY Potassium Chloride ER (Potassium Chloride) 10 Meq Cap 10 Meq PO Levothyroxine (Levothyroxine Sodium) 100 Mcg Tab 100 Mcg PO DAILY Lasix (Furosemide) 20 Mg Tab 20 Mg PO Enalapril (Enalapril Maleate) 20 Mg Tab 20 Mg PO DAILY Carvedilol 6.25 Mg Tab 6.25 Mg PO BID Aspir-81 (Aspirin) 81 Mg Tabdr Review of Systems Except as stated in HPI: all other systems reviewed are Neg General / Constitutional: No: Fever Physical Exam Narrative GENERAL: 87-year-old female pleasant well-nourished well-developed no acute distress Vital Signs Date Time Temp Pulse Resp B/P (MAP) Pulse Ox O2 Delivery O2 Flow Rate FiO2 06/16/17 21:29 85 16 194/80 (118) 97 Room Air 06/16/17 15:59 98.3 75 16 161/68 (99) 98 SKIN: Warm and dry. HEAD: Atraumatic. Normocephalic. EYES: Pupils equal and round. No scleral icterus. No injection or drainage. ENT: No nasal bleeding or discharge. Mucous membranes pink and moist. NECK: Trachea midline. No JVD. CARDIOVASCULAR: Regular rate and rhythm. RESPIRATORY: Minimal wheezing present bilaterally. GASTROINTESTINAL: Abdomen soft, non-tender, nondistended. Hepatic and splenic margins not palpable. MUSCULOSKELETAL: Extremities without clubbing, cyanosis, or edema. No obvious deformities. NEUROLOGICAL: Awake and alert. No obvious cranial nerve deficits. Motor grossly within normal limits. Five out of 5 muscle strength in the arms and legs. Normal speech. PSYCHIATRIC: Appropriate mood and affect; insight and judgment normal. Data Data Last Documented VS Vital Signs Date Time Temp Pulse Resp B/P (MAP) Pulse Ox O2 Delivery O2 Flow Rate FiO2 06/17/17 00:52 06/16/17 21:29 85 16 97 Room Air 06/16/17 15:59 98.3 Orders Orders Chest, Pa & Lat (06/16/17 ) Albuterol-Ipratropium Neb (Duoneb Neb) (06/16/17 22:00) Dexamethasone Inj (Decadron Inj) (06/16/17 22:00) Benzonatate (Tessalon) (06/16/17 22:00) Urinalysis - C+S If Indicated (06/16/17 22:38) Guaifen-Cod 200-20 Mg/10ml Liq (Robituss (06/16/17 23:00) Urine Culture (06/16/17 23:31) Albuterol Neb (Albuterol Neb) (06/17/17 00:00) Ciprofloxacin (Cipro) (06/17/17 00:00) Ed Discharge Order (06/16/17 23:59) Cephalexin (Keflex) (06/17/17 00:15) Labs Laboratory Tests Test 06/16/17 23:31 Urine Color YELLOW Urine Turbidity CLEAR Urine pH 6.0 Urine Specific [place] 1.010 Urine Protein NEG mg/dL Urine Glucose (UA) NEG mg/dL Urine Ketones 10 mg/dL Urine Occult Blood NEG Urine Nitrite NEG Urine Bilirubin NEG Urine Urobilinogen LESS THAN 2.0 MG/DL Urine Leukocyte Esterase LARGE Urine RBC 1 /hpf Urine WBC 58 /hpf Urine WBC Clumps OCC Urine Bacteria MANY /hpf Microscopic Urinalysis Comment CATH-CULTURE IND MDM Medical Decision Making Medical Screen Exam Complete: Yes Emergency Medical Condition: Yes Medical Record Reviewed: Yes Differential Diagnosis PNA, viral URI, post-nasal drip, gerd, bronchitis Narrative Course Last Impressions Chest X-Ray 06/16/17 0000 Signed Impressions: Service Date/Time: June 16:13 - CONCLUSION: No acute cardiopulmonary abnormality is identified. Bernard Hussein MD Patient received duo nebs Decadron and reported significant improvement. Scripts as below. Diagnosis Primary Impression: Bronchitis Referrals: Primary Care Physician call for appointment Med/Other Pt SpecificInfo: Prescription(s) given Scripts Cephalexin (Keflex) 500 Mg Capsule 500 MG PO Q8H for Infection for 7 Days, #21 CAP 0 Refills Prov: Juan Carlos Allen MD 06/17/17 Albuterol 6.7 GM Inh (Proventil Hfa 6.7 GM Inh) 90 Mcg/Act Aer 2 PUFF INH Q6H Y for SHORTNESS OF BREATH, #1 INHALER 0 Refills Prov: Juan Carlos Allen MD 06/16/17 Benzonatate (Tessalon Perles) 100 Mg Cap 200 MG PO TID Y for COUGH, #10 CAP 0 Refills Prov: Juan Carlos Allen MD 06/16/17 Guaifenesin-Codeine Liq (Guaifenesin-Codeine Liq) 100-10 Mg/5 Ml Soln 10 ML PO Q6H Y for COUGH for 7 Days, #1 BOTTLE 0 Refills Prov: Juan Carlos Allen MD 06/16/17 Disposition: 01 DISCHARGE HOME Condition: Stable Juan Carlos Allen MD Jun 16, 2017 22:38
[2017-06-16] MEDS ORDERED: guaiFENesin/CODEINE SYRUP 200 MG/20 MG/10 ML CUP PO ONE (23:00)
[2017-06-16] MEDS ORDERED: BENZ100 PO (23:36)
[2017-06-16] MEDS ORDERED: ALBU6.7H INH (23:36)
[2017-06-16] MEDS ORDERED: GUAI100S5 PO (23:36)
[2017-06-16 23:52] LABS: BACTERIA, URINE MANY /hpf; BILIRUBIN, URINE NEG (NEG); BLOOD, URINE NEG (NEG); GLUCOSE,URINE NEG (NEG); KETONE, URINE 10 mg/dL (NEG); NITRITE,URINE NEG (NEG); URINE COLOR YELLOW (YELLW/STRAW); URINE LEUKOCYTE ESTERASE LARGE (NEG); WHITE BLOOD CELL CLUMPS OCC
[2017-06-17] MEDS ORDERED: RESP: ALBUTEROL 2.5 MG/3 ML NEB (SCH) INH ONE
[2017-06-17] MEDS ORDERED: CIPR-9 PO
[2017-06-17] MEDS ORDERED: CIPROFLOXACIN 500 MG TAB PO ONE
[2017-06-17] MEDS ORDERED: CEPH-460 PO (00:04)
[2017-06-17] MEDS ORDERED: CEPHALEXIN MONOHYDRATE 500 MG CAP PO ONE (00:15)
== END 2017-06-17 00:56 | disposition home or self-care (01) ==
LOC: NEPE 15:51
DX: J44.9 Chronic obstructive pulmonary disease, unspecified (principal); I11.0 Hypertensive heart disease with heart failure; I50.9 Heart failure, unspecified; R82.71 Bacteriuria; Z79.899 Other long term (current) drug therapy
CPT/HCPCS: 71046; 81001; 87077; 87086; 87186; 94640; 94664; 96372; 99284; J1100; J7613